=== PATIENT | female | born 1990 | race Two or more races ===

== ENCOUNTER 2023-12-12 10:09 | Emergency (ER) | payer MEDICAID, OTHER ==
[~2023-12-12] VITALS: Ht 162.6 cm; Wt 102.0 kg
[2023-12-12 10:20] VITALS: BP 134/84; PULSE 97; RESP 16; TEMP 98.2; O2SAT 98
[2023-12-12] MEDS: DexAMETHasone SOD PHOS 10MG/1ML VIAL INJ IM ONE (12:19)
[2023-12-12] MEDS: KETOROLAC TROMETH 30 MG/ML 1ML VIAL IM ONE (12:19)
[2023-12-12] MEDS ORDERED: LIDO2SOL26 MT (12:33)
[2023-12-12] MEDS ORDERED: NAP500T PO (12:33)
[2023-12-12] MEDS: PENICILLIN G BENZ 1,200,000 UNITS/2 ML SYRG IM ONE (12:49)
== END 2023-12-12 12:57 | disposition home or self-care (01) ==
LOC: ER 10:09
DX: J03.90 Acute tonsillitis, unspecified (principal); Z79.899 Other long term (current) drug therapy
CPT/HCPCS: 96372; 99284; J0561; J1100; J1885